=== PATIENT | male | born 1980 | race Two or more races ===

== ENCOUNTER 2024-03-18 19:59 | Emergency (ER) | payer SELFPAY ==
[~2024-03-18 19:59] MED LIST: Iopamidol 370 76% 100 ML VIAL ONE
[2024-03-18] MEDS ORDERED: Ketorolac Tromethamine 30 MG (1 mL) VIAL ONE (21:20)
== END 2024-03-18 22:10 | disposition home or self-care (01) ==
LOC: CSHERS 19:59
DX: M79.10 Myalgia, unspecified site (principal); W19.XXXA Unspecified fall, initial encounter
CPT/HCPCS: 70450; 71260; 72125; 74177; 96374; J1885; Q9967

== ENCOUNTER 2025-06-26 12:32 | Emergency (ER) | payer OTHER ==
[2025-06-26] MEDS ORDERED: Ketorolac Tromethamine 30 MG (1 mL) VIAL ONE (13:15)
== END 2025-06-26 14:09 | disposition home or self-care (01) ==
LOC: CSHERS 12:32
DX: M54.41 Lumbago with sciatica, right side (principal); I10 Essential (primary) hypertension
CPT/HCPCS: 72100; 96372; 99284; J1885